=== PATIENT | male | born 1965 | race Caucasian/White ===

== ENCOUNTER → 2020-06-27 | Outpatient (CLI) | payer OTHER ==
[~2020-06-27] MED LIST: AMLO1TAB24 PO; FENO200C PO; IBUP-1022; LANS30CA93 PO; LISI40TA PO; METF-838 PO; MS C15TA8 PO; PERC5TAB12 PO; ROSU10TA6 PO
== END ==
LOC: M LABSMTC 11:12 → EDUNIT# 11:20
PROVIDERS: ATTEND Anesthesiology
DX: Z01.812 Encounter for preprocedural laboratory examination (principal); Z20.828 Contact with and (suspected) exposure to other viral communicable diseases
CPT/HCPCS: C9803; U0003

== ENCOUNTER 2020-07-02 08:13 | Observation (INO) | payer OTHER, SELFPAY ==
[~2020-07-02] VITALS: Ht 180.3 cm; Wt 130.0 kg
[2020-07-02] VITALS (7 sets, daily range): BP systolic 114–164; BP diastolic 58–115; O2SAT 96
[~2020-07-02 08:13] MED LIST changes: +LR 1,000 ML IV ONE; -MS C15TA8 PO; -PERC5TAB12 PO; +ceFAZolin SOD 2 GM in IV 1 EA IV ONE
[2020-07-02] MEDS ORDERED: LIDOCAINE 1% MDV 20ML VIAL ONE (08:14)
[2020-07-02] MEDS ORDERED: ROPIvacaine 0.5% 30ML INJECTION (J2795 PER 1MG) ONE (08:14)
[2020-07-02] MEDS ORDERED: EPINEPHrine INJ 1 MG/ML 1ML AMP ONE (08:14)
[2020-07-02] MEDS ORDERED: fentaNYL 100 MCG/2 ML INJECTION (J3010) As Ordered ONE ×4 (08:34→14:25)
[2020-07-02] MEDS ORDERED: ONDANSETRON 4MG/2ML VIAL As Ordered ONE (08:34)
[2020-07-02] MEDS ORDERED: dexameTHASONE 4 MG/ML 1ML VIAL (J1100 PER 1MG) As Ordered ONE (08:34)
[2020-07-02] MEDS ORDERED: LIDOCAINE 2% 100MG/5ML SDV (FOR ANES.) As Ordered ONE (08:34)
[2020-07-02] MEDS ORDERED: ROCURONIUM BROMIDE 50 MG/5 ML VIAL As Ordered ONE (08:34)
[2020-07-02] MEDS ORDERED: propofoL 200 MG/20 ML VIAL As Ordered ONE (08:34)
[2020-07-02] MEDS ORDERED: MIDAZOLAM INJ 2MG/2ML VIAL (J2250 PER 1MG) As Ordered ONE ×2 (08:34→09:34)
[2020-07-02] MEDS ORDERED: EPINEPHrine 1MG/ML INJ 30ML MD-VIAL As Ordered ONE (10:29)
[2020-07-02] MEDS ORDERED: MIDAZOLAM INJ 2MG/2ML VIAL (J2250 PER 1MG) IV ONE (10:30)
[2020-07-02] MEDS ORDERED: fentaNYL 100 MCG/2 ML INJECTION (J3010) IV ONE (10:30)
[2020-07-02] MEDS ORDERED: ACETAMINOPHEN 1000MG 100ML IV BTL (OFIRMEV) (J0131 PER 10MG) As Ordered ONE (11:02)
[2020-07-02] MEDS ORDERED: SUGAMMADEX SODIUM 500 MG/5 ML VIAL (BRIDION) As Ordered ONE (11:09)
[2020-07-02] MEDS ORDERED: KETOROLAC 60MG 2ML VIAL As Ordered ONE (11:09)
[2020-07-02] MEDS ORDERED: LABETALOL 100MG/20ML VIAL As Ordered ONE (12:15)
[2020-07-02] MEDS ORDERED: DESFLURANE 240 ML INHALANT As Ordered ONE (12:43)
[2020-07-02] MEDS ORDERED: FUROSEMIDE 100MG/10ML VIAL (J1940) As Ordered ONE (13:44)
[2020-07-02] MEDS ORDERED: D5W 50ML As Ordered ONE (13:46)
[2020-07-02] MEDS ORDERED: HumaLOG INSULIN (NovoLOG) PER UNIT As Ordered ONE (13:52)
[2020-07-02] MEDS ORDERED: DEXTROSE 50% 50 ML SYRINGE As Ordered ONE (13:53)
[2020-07-02] MEDS ORDERED: CALCIUM CHLORIDE 10% 1 GM/10 ML SYR As Ordered ONE (13:54)
[2020-07-02] MEDS ORDERED: ALBUTEROL 6.7GM INHALER **FOR ANES. CART/OMNICELL ONLY As Ordered ONE (14:14)
[2020-07-02 14:34] LABS: BLOOD UREA NITROGEN 14 MG/DL (7-18); CALCIUM LEVEL 8.5 MG/DL (8.5-10.1); CARBON DIOXIDE LEVEL 21 MEQ/L (21-32); CHLORIDE LEVEL 108 MEQ/L (98-107); CREATININE FOR GFR 1.06 MG/DL (0.70-1.30); GLOMERULAR FILTRATION RATE > 60.0 (>56); GLUCOSE, FASTING 179 MG/DL (70-100); POTASSIUM SERUM 6.3 MEQ/L (3.5-5.1); SODIUM LEVEL 136 MEQ/L (136-145); TROPONIN I < 0.02 NG/ML (< 0.10)
[2020-07-02] MEDS ORDERED: KETAMINE HCL 200 MG/20 ML VIAL As Ordered ONE (15:22)
[2020-07-02] MEDS ORDERED: ONDANSETRON 4MG/2ML VIAL IV PRN (15:30)
[2020-07-02] MEDS ORDERED: LR 1,000 ML IV SCH (15:30)
[2020-07-02] MEDS ORDERED: fentaNYL 100 MCG/2 ML INJECTION (J3010) IV PRN (15:30)
[2020-07-02] MEDS ORDERED: NS 1,000 ML IV SCH ×2 (15:30→16:30)
[2020-07-02 15:39] LABS: BLOOD UREA NITROGEN 13 MG/DL (7-18); CALCIUM LEVEL 9.2 MG/DL (8.5-10.1); CARBON DIOXIDE LEVEL 23 MEQ/L (21-32); CHLORIDE LEVEL 108 MEQ/L (98-107); CREATININE FOR GFR 1.22 MG/DL (0.70-1.30); GLOMERULAR FILTRATION RATE > 60.0 (>56); GLUCOSE, FASTING 211 MG/DL (70-100); POTASSIUM SERUM 4.8 MEQ/L (3.5-5.1); SODIUM LEVEL 139 MEQ/L (136-145)
[2020-07-02] MEDS: oxyCODONE 5MG TAB PO PRN ×2 (15:53→16:31)
[2020-07-02] MEDS ORDERED: GLUCOSE 4GM CHEW TABLET PO PRN (16:30)
[2020-07-02] MEDS ORDERED: DEXTROSE 50% 50 ML SYRINGE IV PRN (16:30)
[2020-07-02] MEDS ORDERED: ACETAMINOPHEN TAB 650MG DOSE (2X325MG) PO PRN (16:30)
[2020-07-02] MEDS ORDERED: GLUCAGON INJ 1MG VIAL SC PRN (16:30)
[2020-07-02] MEDS ORDERED: SOD POLYSTYRENE SULFONATE SUSP 15 GM/60 ML UD PO ONE (17:00)
[2020-07-02 17:02] LABS: BASO % 0.2 % (0.0-1.0); HEMATOCRIT 43.6 % (42.0-52.0); HEMOGLOBIN 14.5 g/dl (13.5-17.5); LYMPH # 0.5 10^3/uL (1.5-5.0); LYMPH % 4.4 % (24.0-44.0); MEAN CORPUSCULAR HEMOGLOBIN 29.6 pg (27.0-33.0); MEAN CORPUSCULAR HGB CONC 33.3 g/dl (32.0-36.5); MONO # 0.1 10^3/uL (0.0-0.8); MONO % 1.1 % (0.0-5.0); NEUTROPHILS # 11.4 10^3/uL (1.5-8.5); NEUTROPHILS % 93.8 % (36.0-66.0); PLATELET COUNT, AUTOMATED 273 10^3/uL (150-450); WHITE BLOOD COUNT 12.1 10^3/uL (4.0-10.0)
[2020-07-02 17:26] LABS: CK-MB VALUE MASS 3.4 NG/ML (<3.6); CPK CREATINE PHOSPHOKINASE 279 U/L (39-308); MB/CK RELATIVE INDEX 1.22 (< OR =4); TROPONIN I < 0.02 NG/ML (< 0.10)
--- NOTE | 2020-07-02 17:26 | HPEPDOC ---
[facility] Medical History & Physical Date of Admission Jul 02, 2020 Date of Service: Jul 02, 2020 History and Physical Chief complaint: Called to evaluate patient for abnormal EKG History of present illness: Patient is a 54-year-old male with a PMHx of HTN, DLP, NIDDM2, Hx of Anemia and GERD who presented to the [facility] for an elective right shoulder arthroscopy. . He has received outpatient medical clearance from his primary care provider, Dr. Umesh Servin. While patient was in OR he was noted to have peaked T waves. Basic metabolic panel that had revealed a potassium of 6.3; he was given Calcium gluconate / Insulin and Glucose. Repeat lab work 1-1/2 hours after had revealed a potassium of 4.8. EKG acquired had shown normal T waves. Hospitalist service was called for further evaluation and treatment. Patient denies any lightheadedness or dizziness. Patient denies any chest pain, shortness breath, palpitations, nausea, vomiting, abdominal pain, constipation, or urinary discomfort. Patient does report experiencing diarrhea this morning. He noted that he experienced 5 bowel movements, loose and dark, without blood. Patient denies any prior history of heart attack or strokes. Does report having a stress test completed approximately 8-10 years ago without any abnormalities. Past Medical History: HTN, DLP, NIDDM2, Hx of Anemia and GERD Past Surgical History: Colonoscopy with removal of polyps 3-4 years ago Allergies: See below Medications: See below Family History: - No history of malignancies Social History: - Denies the use of illicit drugs; patient reports that he chews tobacco. He does drink alcohol socially with a few beers - Denies recent travel or sick contacts - Lives with - Occupation; limo driver/equipment cleaner Review of Systems: 10 point review of systems complete, all negative otherwise stated in HPI Physical exam: - Vitals: BP [163/84], HR [84], RR [16], Sat [94%NC2L], Temp - General: Lying in bed, No acute distress, Speaking in full sentences, AAOx3 - HEENT: NC, AT, PERRLA - CVS: RRR, +S1S2 - Lungs: Fair air entry bilaterally, No appreciable wheezing / rales / rhonchi - Abdomen: Soft, Non-distended, Non-tender - Extremities: No lower extremity edema, No calf tenderness, right shoulder with dressing/sling in place - Neuro: No focal motor or sensory deficit - Skin: No visible rashes Assessment and Plan: Hyperkalemia / Peaked T waves on telemetry while in OR - Patient has received outpatient blood work on 01/22/2020; potassium was noted to be 4.8 - Patient has also reported diarrhea this morning; reported >5 BMs - loose - Patient denies any chest pain, shortness of breath or palpitations - Potassium at 3 PM was 4.8; will repeat in 4 hours - Troponin x 1 negative; will continue to trend - EKG without any peaked T waves noted - s/p Calcium gluconate / Glucose / Insulin - Will start IV fluid hydration - Hold Lisinopril - c/w Telemetry monitoring overnight Diarrhea - c/w IV fluid hydration - Will check GI panel HTN - Possibly 2/2 pain - Will hold Lisinopril (re: Hyperkalemia) - Will increase frequency of Amlodipine Right shoulder arthroscopy - Patient has had a arthroscopy of his right shoulder completed by Dr. Lara - c/w Pain control DLP - c/w Rosuvastatin and Fenofibrate NIDDM2 - Will hold Metformin - Will start ISS Hx of Anemia - Hg within normal range - Reported dark stools - No bleeding noted GERD - c/w PPI DVT prophylaxis - Will start TEDs/Sequentials Vital Signs Vital Signs Date Time Temp Pulse Resp B/P (MAP) Pulse Ox O2 Delivery O2 Flow Rate FiO2 07/02/20 16:31 18 07/02/20 16:25 84 163/84 (110) 94 Nasal Cannula 2 07/02/20 16:10 97.9 Laboratory Data Labs 24H Laboratory Tests 2 07/02/20 08:39: Bedside Glucose (Misc Panel) 95 07/02/20 13:26: Anion Gap 7L, Glomerular Filtration Rate > 60.0, Calcium Level 8.5, Troponin I < 0.02 07/02/20 15:02: Anion Gap 8, Glomerular Filtration Rate > 60.0, Calcium Level 9.2 07/02/20 15:25: Bedside Glucose (Misc Panel) 195H 07/02/20 16:49: Immature Granulocyte % (Auto) 0.5, Neutrophils (%) (Auto) 93.8H, Lymphocytes (%) (Auto) 4.4L, Monocytes (%) (Auto) 1.1, Eosinophils (%) (Auto) 0.0, Basophils (%) (Auto) 0.2, Neutrophils # (Auto) 11.4H, Lymphocytes # (Auto) 0.5L, Monocytes # (Auto) 0.1, Eosinophils # (Auto) 0.0, Basophils # (Auto) 0.0, Nucleated Red Blood Cells % (auto) 0.0 CBC/BMP Laboratory Tests 07/02/20 13:26 07/02/20 15:02 07/02/20 16:49 Home Medications Scheduled Amlodipine Besylate (Amlodipine Besylate) 5 Mg Tablet, 5 MG PO DAILY Fenofibrate,Micronized (Fenofibrate) 200 Mg Capsule, 200 MG PO DAILY Lansoprazole (Lansoprazole) 30 Mg Capsule.dr, 30 MG PO DAILY Lisinopril (Lisinopril) 40 Mg Tablet, 40 MG PO DAILY Metformin HCl (Metformin HCl ER) 500 Mg Tab.er.24h, 500 MG PO DAILY Rosuvastatin Calcium (Rosuvastatin Calcium) 10 Mg Tablet, 10 MG PO DAILY Miscellaneous Medications Ibuprofen (Ibuprofen) 600 Mg Tablet Allergies Coded Allergies: No Known Allergies (Unverified , 06/25/20) A-FIB/CHADSVASC A-FIB History Current/History of A-Fib/PAF?: No CHIQUITA KAPLAN MD Jul 02, 2020 17:26
[2020-07-02] MEDS ORDERED: PERCOCET 5MG/325MG TAB PO PRN (17:30)
[2020-07-02] MEDS: FENOFIBRATE 145 MG TAB (TRICOR) PO SCH (17:39)
[2020-07-02] MEDS: OMEPRAZOLE 20 MG CAP PO SCH (17:39)
[2020-07-02] MEDS: ROSUVASTATIN 10 MG TAB (CRESTOR) PO SCH (17:40)
--- NOTE | 2020-07-02 17:45 | REP ---
INDICATION: Hyperkalemia. COMPARISON: None. FINDINGS: The technique utilized in obtaining the radiograph has magnified the cardiac silhouette and accentuated the interstitial markings. The superior mediastinal structures are midline. The cardiac silhouette is magnified by technique. Mild cardiomegaly is suspected. The diaphragmatic surfaces of the lungs are regular, and the costophrenic angles are clear. There is elevation of the diaphragmatic surface of the right lung. The pulmonary carranza are clear. The imaged osseous structures are intact. IMPRESSION: There is mild cardiomegaly. There is no evidence of acute cardiopulmonary disease. <Electronically signed by Rao Hudson > 07/02/20 [id number]
[2020-07-02] MEDS: HumaLOG INSULIN (NovoLOG) PER UNIT SC SCH (18:28)
[2020-07-02] MEDS: amLODIPine 5 MG TAB PO SCH (20:04)
[2020-07-02] MEDS ORDERED: HumaLOG INSULIN (NovoLOG) PER UNIT SC SCH (21:00)
[2020-07-02] MEDS ORDERED: HEPARIN SOD (PORCINE) 5000UNITS/ML 1ML VIAL/SYRINGE SC SCH (22:00)
[2020-07-02 22:31] LABS: BLOOD UREA NITROGEN 12 MG/DL (7-18); CARBON DIOXIDE LEVEL 25 MEQ/L (21-32); CHLORIDE LEVEL 105 MEQ/L (98-107); CK-MB VALUE MASS 5.2 NG/ML (<3.6); CPK CREATINE PHOSPHOKINASE 392 U/L (39-308); CREATININE FOR GFR 0.91 MG/DL (0.70-1.30); GLOMERULAR FILTRATION RATE > 60.0 (>56); GLUCOSE, FASTING 114 MG/DL (70-100); MB/CK RELATIVE INDEX 1.33 (< OR =4); POTASSIUM SERUM 4.5 MEQ/L (3.5-5.1); SODIUM LEVEL 138 MEQ/L (136-145); TROPONIN I < 0.02 NG/ML (< 0.10)
[2020-07-03 02:00] VITALS: BP 128/65
[2020-07-03] MEDS: PERCOCET 5MG/325MG TAB PO PRN ×2 (05:37→13:17)
[2020-07-03] MEDS ORDERED: PERC5TAB12 PO (05:51)
[2020-07-03 06:00] VITALS: BP 163/94
[2020-07-03 06:30] LABS: BASO % 0.1 % (0.0-1.0); HEMATOCRIT 41.7 % (42.0-52.0); LYMPH # 1.3 10^3/uL (1.5-5.0); LYMPH % 10.6 % (24.0-44.0); MEAN CORPUSCULAR HEMOGLOBIN 30.4 pg (27.0-33.0); MEAN CORPUSCULAR HGB CONC 33.6 g/dl (32.0-36.5); MEAN CORPUSCULAR VOLUME 90.7 fl (80.0-96.0); MONO % 7.6 % (0.0-5.0); NEUTROPHILS # 10.3 10^3/uL (1.5-8.5); NEUTROPHILS % 81.3 % (36.0-66.0); PLATELET COUNT, AUTOMATED 273 10^3/uL (150-450); WHITE BLOOD COUNT 12.7 10^3/uL (4.0-10.0)
[2020-07-03] MEDS ORDERED: MORPHINE 2 MG/ML 1ML VIAL (J2270) IV ONE (06:30)
[2020-07-03 06:51] LABS: BLOOD UREA NITROGEN 11 MG/DL (7-18); CALCIUM LEVEL 9.4 MG/DL (8.5-10.1); CARBON DIOXIDE LEVEL 27 MEQ/L (21-32); CHLORIDE LEVEL 102 MEQ/L (98-107); CREATININE FOR GFR 0.87 MG/DL (0.70-1.30); GLOMERULAR FILTRATION RATE > 60.0 (>56); GLUCOSE, FASTING 112 MG/DL (70-100); POTASSIUM SERUM 4.4 MEQ/L (3.5-5.1); SODIUM LEVEL 137 MEQ/L (136-145)
[2020-07-03 06:52] LABS: MAGNESIUM LEVEL 1.7 MG/DL (1.8-2.4)
[2020-07-03] MEDS ORDERED: MAG SULF 1GM/100ML (MAG RUN) 1 GM in IV 1 EA IV ONE (07:30)
[2020-07-03] MEDS: HumaLOG INSULIN (NovoLOG) PER UNIT SC SCH ×2 (07:30→12:00)
[2020-07-03] MEDS ORDERED: AMLO1TAB24 PO (08:13)
[2020-07-03] MEDS: FENOFIBRATE 145 MG TAB (TRICOR) PO SCH (08:19)
[2020-07-03] MEDS: ROSUVASTATIN 10 MG TAB (CRESTOR) PO SCH (08:19)
[2020-07-03] MEDS: OMEPRAZOLE 20 MG CAP PO SCH (08:19)
[2020-07-03 08:20] VITALS: BP 165/92
[2020-07-03] MEDS: amLODIPine 5 MG TAB PO SCH (08:20)
--- NOTE | 2020-07-03 08:37 | RO ---
DATE OF OPERATION: 07/02/2020 PREOPERATIVE DIAGNOSIS: 1. Right shoulder rotator cuff tear. 2. Right shoulder impingement. 3. Right shoulder long head biceps tendonitis with possible flap tear. POSTOPERATIVE DIAGNOSIS: 1. Right shoulder arthrofibrosis. 2. Right shoulder rotator cuff tear. 3. Right shoulder impingement. 4. Right shoulder labral tear. 5. Right shoulder glenohumeral osteoarthritis. 6. Right shoulder long head biceps tendonitis. PROCEDURE: 1. Right shoulder manipulation under anesthesia. 2. Right shoulder arthroscopic lysis of adhesions. 3. Right shoulder arthroscopic rotator cuff repair. 4. Right shoulder chondroplasty and labral debridement. 5. Right shoulder open subpectoral biceps tenodesis. 6. Right shoulder arthroscopic subacromial decompression including acromioplasty. SURGEON: Omid Lara M.D. OIL FIELD OPERATOR: Josiah Busch PA-C ANESTHESIA: General with preoperative nerve block. IV FLUIDS: Lactated Ringers. ESTIMATED BLOOD LOSS: 50 mL IMPLANTS: Arthrex proximal biceps button x1, Arthrex 4.75 mm PEEK SwiveLock anchor x4. CLOSURE: Monocryl and nylon. DESCRIPTION OF PROCEDURE: The patient identified in the preoperative holding area. The right shoulder was marked. He had an interscalene nerve block from anesthesia. He was then brought to the operating room, placed supine on a well- padded OR table with a beanbag. General anesthesia was induced. A preliminary timeout performed per hospital protocol. Examination under anesthesia revealed 100 degrees of forward flexion, 40 degrees of external rotation with his arm at his side and 30 degrees of external rotation with his shoulder at 90. So I then performed a manipulation under anesthesia. I applied steady forward flexion to the proximal humerus and downward pressure with my other hand on the scapula and multiple audible pops were felt. I then brought the patient down to neutral and then up into abduction. Two additional pops were felt. He was then brought into adduction followed by internal and external rotation. Following the manipulation, I was then able to get the patient up to 160 degrees of forward flexion, 60 degrees of external rotation with his arm at his side and 70 degrees of external rotation with his shoulder at 90. He was then placed into the left side down lateral decubitus position with an axillary roll and all bony prominences were well padded. Bilateral SCDs for DVT prophylaxis. He received appropriate IV antibiotics within one hour of incision. The right arm was placed into an Arthrex Star sleeve as well as the lateral decubitus traction leung in 10 lb of traction. There was no increased anterior or posterior translation on loading shift test. The right shoulder was then prepped and draped in normal sterile fashion with ChloraPrep. A timeout had already been performed. A posterolateral portal was localized with a spinal needle. Incision made with an 11 blade, a 30 degree arthroscope. I had difficulty getting into the joint so I attempted again the subacromial space and actually was finally able to get into the joint. . Based on preoperative imaging, there was a full-thickness tear of the supraspinatus with significant retraction. There was a thin layer of tissue, scarred bursa versus thin rotator cuff tendon tissue but otherwise a complete rotator cuff tear. There was some free edge tearing of the anterior labrum. There was full-thickness labral tearing at the 6 o'clock position and then there was a diffuse grade 1 with a few areas of grade 2 chondromalacia in the glenoid. I had difficulty visualizing the subscapularis. The long head of the biceps was significantly enlarged, consistent with tendinopathy and interstitial tearing. An anterior portal was localized with a spinal needle and a purple Arthrex cannula placed through the rotator interval. I then performed an arthroscopic lysis of adhesions using the radiofrequency cautery as well as using the meniscal biter to release the middle glenohumeral ligament and anterior capsule. The subscapularis was better visualized now. A tenotomy of the long head of the biceps was performed with the biter. Labral debridement with a shaver anteriorly and then with a meniscal biter inferiorly and a chondroplasty with a shaver. I now had an excellent view of the subscapularis and there was no tearing and there was no liftoff during the posterior lever push maneuver. The arthroscope was placed into the subacromial space and via a lateral working portal, performed an extensive bursectomy with shaver and cautery. At this point, the overall configuration of the tear was an L-shaped tear with the long limb of the L based along the rotator interval. There were two horizontal intrasubstance tears, horizontal splits essentially. Following an extensive debridement and mobilization of the rotator cuff tissue, I had a significant concern that I would not be able to get a complete repair. So I performed a complete rotator interval release. I released as much scar tissue off of the undersurface of the acromion anteriorly, medially and posteriorly and then I had significantly improved posterior to anterior excursion of the rotator cuff with some medial to lateral excursion. There were then two thin flaps of very poor quality supraspinatus tissue and those were debrided with a shaver. I did deem this worthy of a repair. We first did the open biceps tenodesis. An incision was made with a 15 blade just lateral to the axilla. Dissection down to the deep fascia with cautery and Metzenbaum scissors. The deep fascia was opened. The long head of the biceps was retrieved and again noted was significant intrasubstance tearing and thickening so the running locking whipstitch was placed with the FiberLoop. Excess tendon trimmed and sent to pathology. Sutures loaded through the button per routine. A spade-tip drill used to create a unicortical drill hole within the bicipital groove. Irrigation used to remove bony debris. The button was passed through the drill hole on the sleever, sutures tied which flipped the button and the curved free needle used to pass one limb of suture back through the tendon, knots tied by hand and locked the construct in place. This nicely restored the resting tension. The incision was reirrigated and closed in a layered fashion with 2-0 Vicryl, 2-0 Vicryl and a running Monocryl. At the end of the case, Steri-Strips were placed. The arthroscope was placed back into the subacromial space and I percutaneously placed a 4.75 mm PEEK SwiveLock anchor, the far anterior greater tuberosity just off the articular surface. I also used separate limbs of #2 FiberWire and performed a margin convergence stitch medially and anteriorly so that was done margin convergence x2. Those sutures were cut. The eyelet sutures from the SwiveLock anchor were passed through the far anterior portion of the remaining supraspinatus, the knots tied by hand with a knot pusher using alternating half- hitch technique. The remaining eyelet stitches were placed just posterior to that and then the tapes placed centrally. The remaining eyelet sutures were tied with a knot pusher. I then placed a second 4.75 mm PEEK SwiveLock anchor then from anterior to posterior, passed the two eyelet stitches and the two tapes and then the other two eyelet stitches. Two separate eyelet sutures were tied full range of motion anterior to posterior. The far posterior sutures were cut. That set the infraspinatus. Now appropriate medial row sutures were brought out through an accessory anterolateral portal loaded through a 4.75 mm PEEK SwiveLock anchor and a socket created with an awl and the anchor dock sutures tensioned. [place] inserted by hand with excellent fixation. These steps were repeated with remaining sutures through a fourth and final 4.75 mm SwiveLock anchor and that also had great fixation. This completed the repair. There was minimal dog ear posteriorly. The shoulder was internally and externally rotated gently and there was no liftoff or buckling. I was very pleasantly surprised I was able to get the entire tuberosity covered with tendon. The shoulder was irrigated and drained. Portals closed with nylon suture, bulky sterile dressing applied. Josiah Busch PA-C was present for the entire procedure and participated in all essential portions of the procedure. This included patient positioning and draping, holding the arthroscope, providing traction to the arm, retrieving sutures, assisted with placing anchors and then also performed the wound closure, applied the dressing and brace. DISPOSITION: At the time of dictation, the patient is about to be extubated and transferred to the PACU. He will have initial cardiac monitoring and postop EKG and electrolytes and then if he deemed stable for discharge, he will start physical therapy two weeks postop. He may need to be kept overnight for monitoring. In terms of rehab, physical therapy will start two weeks postop. He will be passive range of motion only the first seven weeks and week eight, he can start assistive range of motion. No active range of motion until week twelve, no rotator cuff strengthening until week sixteen. MTDD
--- NOTE | 2020-07-03 08:50 | DS.PDOC ---
Discharge Summary General Date of Admission 07/03/2020 Date of Discharge 07/03/2020 Discharge Summary PROCEDURES PERFORMED DURING STAY: [None]. ADMITTING DIAGNOSES / DISCHARGE DIAGNOSES: s/p Hyperkalemia / Peaked T waves on telemetry while in OR s/p Diarrhea HTN Right shoulder arthroscopy DLP NIDDM2 Hx of Anemia GERD DVT prophylaxis COMPLICATIONS/CHIEF COMPLAINT: Right Rotator Cuff Tear. HISTORY OF PRESENT ILLNESS: Patient is a 54-year-old male with a PMHx of HTN, DLP, NIDDM2, Hx of Anemia and GERD who presented to the [facility] for an elective right shoulder arthroscopy. . He has received outpatient medical clearance from his primary care provider, Dr. Umesh Servin. While patient was in OR he was noted to have peaked T waves. Basic metabolic panel that had revealed a potassium of 6.3; he was given Calcium gluconate / Insulin and Glucose. Repeat lab work 1-1/2 hours after had revealed a potassium of 4.8. EKG acquired had shown normal T waves. Hospitalist service was called for further evaluation and treatment. HOSPITAL COURSE: s/p Hyperkalemia / Peaked T waves on telemetry while in OR - Patient has received outpatient blood work on 01/22/2020; potassium was noted to be 4.8 - Patient has also reported diarrhea this morning; reported >5 BMs - loose - Patient denies any chest pain, shortness of breath or palpitations - Potassium has normalized - Troponin x 3 negative - EKG without any peaked T waves noted - s/p Calcium gluconate / Glucose / Insulin - Will DC IV fluid hydration - DC Lisinopril on discharge; increased dose of Amlodipine - Will have outpatient follow up with PCP within 7 days s/p Diarrhea - Will DC IV fluid hydration HTN - Possibly 2/2 pain - Will hold Lisinopril (re: Hyperkalemia) - c/w adjusted dose of Amlodipine Right shoulder arthroscopy - Patient has had a arthroscopy of his right shoulder completed by Dr. Lara - c/w Pain control DLP - c/w Rosuvastatin and Fenofibrate NIDDM2 - Will hold Metformin - c/w ISS Hx of Anemia - Hg within normal range - Reported dark stools - No bleeding noted GERD - c/w PPI DVT prophylaxis - c/w TEDs/Sequentials DISCHARGE MEDICATIONS: Please see below. ALLERGIES: Please see below. PHYSICAL EXAMINATION ON DISCHARGE: Vitals (See below) General: Lying in bed, appears comfortable, AAOx3 HEENT: NC, AT CVS: +S1S2 Lungs: Fair air entry b/l, no wheezing / rhonchi / rales Abdomen: Soft, ND, NT Extremities: - Edema, - Calf tenderness LABORATORY DATA: Please see below. ACTIVITY: [As tolerated]. DISCHARGE PLAN: Follow-up with PCP and Orthopedic surgery within the next 7 days Remain compliant with treatment plan and medications Return to the ER if you experience any problems DISPOSITION: Home DISCHARGE CONDITION: [Stable]. TIME SPENT ON DISCHARGE: 25 minutes. Vital Signs/I&Os Vital Signs Date Time Temp Pulse Resp B/P (MAP) Pulse Ox O2 Delivery O2 Flow Rate FiO2 07/03/20 08:20 78 165/92 07/03/20 07:07 14 07/03/20 06:00 98.8 94 Nasal Cannula 2.0 I&O- Last 24 Hours up to 6 AM 07/03/20 06:00 Intake Total 3620 ml Output Total 1325 ml Balance 2295 ml Laboratory Data Labs 24H Laboratory Tests 2 07/02/20 13:26: Anion Gap 7L, Glomerular Filtration Rate > 60.0, Calcium Level 8.5, Troponin I < 0.02 07/02/20 15:02: Anion Gap 8, Glomerular Filtration Rate > 60.0, Calcium Level 9.2 07/02/20 15:25: Bedside Glucose (Misc Panel) 195H 07/02/20 16:49: Troponin I < 0.02, Immature Granulocyte % (Auto) 0.5, Neutrophils (%) (Auto) 93.8H, Lymphocytes (%) (Auto) 4.4L, Monocytes (%) (Auto) 1.1, Eosinophils (%) (Auto) 0.0, Basophils (%) (Auto) 0.2, Neutrophils # (Auto) 11.4H, Lymphocytes # (Auto) 0.5L, Monocytes # (Auto) 0.1, Eosinophils # (Auto) 0.0, Basophils # (Auto) 0.0, Nucleated Red Blood Cells % (auto) 0.0, Total Creatine Kinase 279, Creatine Kinase MB 3.4, Creatine Kinase MB Relative Index 1.22 07/02/20 17:34: Bedside Glucose (Misc Panel) 135H 07/02/20 19:11: Bedside Glucose (Misc Panel) 150H 07/02/20 21:56: Anion Gap 8, Glomerular Filtration Rate > 60.0, Calcium Level 9.0, Total Creatine Kinase 392H, Creatine Kinase MB 5.2H, Creatine Kinase MB Relative Index 1.33, Troponin I < 0.02 07/03/20 05:47: Anion Gap 8, Glomerular Filtration Rate > 60.0, Calcium Level 9.4, Immature Granulocyte % (Auto) 0.4, Neutrophils (%) (Auto) 81.3H, Lymphocytes (%) (Auto) 10.6L, Monocytes (%) (Auto) 7.6H, Eosinophils (%) (Auto) 0.0, Basophils (%) (Auto) 0.1, Neutrophils # (Auto) 10.3H, Lymphocytes # (Auto) 1.3L, Monocytes # (Auto) 1.0H, Eosinophils # (Auto) 0.0, Basophils # (Auto) 0.0, Nucleated Red Blood Cells % (auto) 0.0, Magnesium Level 1.7L CBC/BMP Laboratory Tests 07/02/20 13:26 07/02/20 15:02 07/02/20 16:49 07/02/20 21:56 07/03/20 05:47 FSBS Laboratory Tests Test 07/02/20 15:25 07/02/20 17:34 07/02/20 19:11 Range/Units Bedside Glucose (Misc Panel) 195 135 150 70-105 MG/DL Discharge Medications Scheduled Amlodipine Besylate (Amlodipine Besylate) 5 Mg Tablet, 5 MG PO BID Fenofibrate,Micronized (Fenofibrate) 200 Mg Capsule, 200 MG PO DAILY, (Reported) Lansoprazole (Lansoprazole) 30 Mg Capsule.dr, 30 MG PO DAILY, (Reported) Metformin HCl (Metformin HCl ER) 500 Mg Tab.er.24h, 500 MG PO DAILY, (Reported) Rosuvastatin Calcium (Rosuvastatin Calcium) 10 Mg Tablet, 10 MG PO DAILY, (Reported) Scheduled PRN Oxycodone HCl/Acetaminophen (Percocet 5-325 mg Tablet) 1 Each Tablet, 1-2 TAB PO Q4H PRN for PAIN Allergies Coded Allergies: No Known Allergies (Unverified , 06/25/20) CHIQUITA KAPLAN MD Jul 03, 2020 08:50
[2020-07-03] MEDS ORDERED: MORPHINE 15 MG SA TAB PO SCH (09:00)
[2020-07-03] MEDS ORDERED: KETOROLAC 30 MG/ML 1ML VIAL IV ONE (09:30)
[2020-07-03 10:00] VITALS: BP 168/92
[2020-07-03] MEDS ORDERED: MORPHINE 15 MG SA TAB PO ONE (12:00)
[2020-07-03] MEDS ORDERED: MS C15TA8 PO (12:39)
[2020-07-03 13:52] VITALS: BP 178/85
[2020-07-03] MEDS ORDERED: CelecoXIB 400 MG CAP PO ONE (14:00)
--- NOTE | 2020-07-04 09:09 | ECGEPIP ---
[facility] Test Date: 2020-07-02 Pat Name: VERNELL VICTOR Department: Room: - Gender: Male Silk Finisher: RAÚL : 1965 Requested By: Alok Nunn Order Number: [id number] Reading MD: Jesús Servin Measurements Intervals [place] Rate: 84 P: 47 ID: [id number] QRS: 104 QRSD: 98 T: 64 QT: 374 QTc: 444 Interpretive Statements SINUS RHYTHM Slight RIGHT AXIS DEVIATION NONSPECIFIC T-WAVE ABNORMALITY No prior ECG available for comparison at the time of interpretation. Electronically Signed on 07-04-2020 9:09:14 EDT by Jesús Servin
== END 2020-07-03 15:12 | disposition home or self-care (01) ==
LOC: M SDC 08:13 → M MSPAV 16:33 → M SDC 17:02 → M MSPAV 17:02 → M SDC 07-03 15:12
PROVIDERS: ADMIT Internal Medicine; ATTEND Orthopaedic Surgery
DX: M75.41 Impingement syndrome of right shoulder (principal); M24.611 Ankylosis, right shoulder; M19.011 Primary osteoarthritis, right shoulder; M75.21 Bicipital tendinitis, right shoulder; M75.101 Unspecified rotator cuff tear or rupture of right shoulder, not specified as traumatic; I10 Essential (primary) hypertension; E11.9 Type 2 diabetes mellitus without complications; E87.5 Hyperkalemia; K21.9 Gastro-esophageal reflux disease without esophagitis; D64.9 Anemia, unspecified; E78.5 Hyperlipidemia, unspecified; F17.220 Nicotine dependence, chewing tobacco, uncomplicated; Z79.899 Other long term (current) drug therapy; Z79.84 Long term (current) use of oral hypoglycemic drugs
CPT/HCPCS: 23430; 29825; 29826; 29827; 36415; 64415; 71045; 80048; 82330; 82550; 82553; 82947; 83735; 84132; 84295; 84484; 85014; 85025; 88304; 93005; 96361; 96374; 96375; 96376; C1713; J0131; J0171; J0690; J1100; J1885; J1940; J2250; J2270; J2405; J2795; J3010; J3475